=== PATIENT | female | born 1995 | race Caucasian/White ===

== ENCOUNTER 2022-11-04 22:37 | Emergency (ER) | payer BC ==
[~2022-11-04] VITALS: Ht 152.4 cm; Wt 68.0 kg
[2022-11-04] MEDS ORDERED: GABAPENTIN100 M2 PO (22:51)
[2022-11-04] MEDS ORDERED: ZOLOFT100 MG PO (22:51)
[2022-11-05] MEDS ORDERED: HYDROCODONE-AC1 EAC1 PO (01:03)
== END 2022-11-05 01:12 | disposition home or self-care (01) ==
LOC: ED 22:37
DX: S52.501A Unspecified fracture of the lower end of right radius, initial encounter for closed fracture (principal); Z79.899 Other long term (current) drug therapy; W01.0XXA Fall on same level from slipping, tripping and stumbling without subsequent striking against object, initial encounter; Y93.89 Activity, other specified; Y92.828 Other wilderness area as the place of occurrence of the external cause; Y99.8 Other external cause status

== ENCOUNTER → 2022-11-14 | Outpatient (CLI) | payer BC ==
[~2022-11-14] MED LIST: GABAPENTIN100 M2 PO; HYDROCODONE-AC1 EAC1 PO; ZOLOFT100 MG PO
== END | disposition home or self-care (01) ==
LOC: ORTHO 00:39
PROVIDERS: ATTEND Orthopaedic Surgery
DX: S52.531D Colles' fracture of right radius, subsequent encounter for closed fracture with routine healing (principal); X58.XXXD Exposure to other specified factors, subsequent encounter

== ENCOUNTER → 2022-12-12 | Outpatient (CLI) | payer BC | END | disposition home or self-care (01) | LOC: ORTHO 01:43 | PROVIDERS: ATTEND Orthopaedic Surgery | DX: S52.531D Colles' fracture of right radius, subsequent encounter for closed fracture with routine healing (principal); X58.XXXD Exposure to other specified factors, subsequent encounter ==

== ENCOUNTER 2023-11-05 18:35 | Emergency (ER) | payer OTHER, BC ==
[~2023-11-05] VITALS: Ht 154.9 cm; Wt 77.1 kg
[2023-11-05] MEDS ORDERED: NAPROSYN500 MG PO (23:02)
== END 2023-11-05 23:05 | disposition home or self-care (01) ==
LOC: ED 18:35
DX: S39.012A Strain of muscle, fascia and tendon of lower back, initial encounter (principal); S70.01XA Contusion of right hip, initial encounter; F41.9 Anxiety disorder, unspecified; F32.A Depression, unspecified; V49.9XXA Car occupant (driver) (passenger) injured in unspecified traffic accident, initial encounter; Y93.89 Activity, other specified; Y92.89 Other specified places as the place of occurrence of the external cause; Y99.8 Other external cause status

== ENCOUNTER 2024-11-12 14:01 | Emergency (ER) | payer BC ==
[~2024-11-12] VITALS: Wt 68.0 kg
[~2024-11-12 14:01] MED LIST changes: +NAPROSYN500 MG PO
== END 2024-11-12 15:36 | disposition home or self-care (01) ==
LOC: ED 14:01
DX: S93.401A Sprain of unspecified ligament of right ankle, initial encounter (principal); F41.9 Anxiety disorder, unspecified; F32.A Depression, unspecified; W01.0XXA Fall on same level from slipping, tripping and stumbling without subsequent striking against object, initial encounter; Y93.89 Activity, other specified; Y92.89 Other specified places as the place of occurrence of the external cause; Y99.8 Other external cause status